=== PATIENT | female | born 1975 | race Caucasian/White ===

== ENCOUNTER → 2016-09-23 | Outpatient (CLI) | payer SELFPAY ==
[~2016-09-23] MED LIST: FERROUS SULFATE PO; SERTRALINE HCL50 M1 PO; ZANAFLEX2 M1 PO
== END | disposition home or self-care (01) ==
LOC: CBAR 15:46
DX: Z01.818 Encounter for other preprocedural examination (principal); E66.01 Morbid (severe) obesity due to excess calories
CPT/HCPCS: G0463

== ENCOUNTER → 2016-11-29 | Outpatient (CLI) | payer OTHER ==
--- NOTE | ~2016-11-29 | EKG ---
PATIENT: JEREMY GREEN UNIT #: [id number] Ventricular Rate: 65 BPM Atrial Rate: 65 BPM P-R Interval: 144 ms QRS Duration: 80 ms Q-T Interval: 400 ms QTC Calculation(Bezet): 416 ms P Climax: 33 degrees Calculated R Climax: 26 degrees Calculated T Climax: 20 degrees Diagnosis Line: Normal sinus rhythm with sinus arrhythmia Diagnosis Line: Normal ECG Diagnosis Line: No previous ECGs available Diagnosis Line: Confirmed by CLIVE PRICE MD ([id number]) on Diagnosis Line: 11/29/2016 4:38:43 PM INTERPRETING MD: DEE SKY
--- NOTE | ~2016-11-29 | CR63 ---
[facility] A Service of [facility] & [facility] RADIOLOGY TEXT RESULTS PATIENT: JEREMY GREEN LOCATION: [facility] : 73 UNIT #: [id number] AGE: [address]: Ambrose Ward MD SEX: F ORDER DR: [id number] [facility] [address] [place], [place] [address] [id number] O MR#: [id number] Acc #: [id number] NAME: JEREMY GREEN : 1975 SEX: F STUDY DATE/TIME: 11/29/2016 8:02 UNIT: [facility] ROOM: STUDY DESCRIPTION: CR Chest 2 View Attending Physician: Ambrose Ward M.D. Referring Physician: Ambrose Ward M.D. Ordering Physician: Ambrose Ward M.D. Primary Care Physician: Caryl Schultz A.P.R.N. MEDICAL IMAGING REPORT This report is preliminary unless electronic signature is present EXAM 2 view chest 11/29/2016 HISTORY 40-year-old female for preoperative respiratory clearance prior to gastric Lap-Band surgery and possible paraesophageal hernia repair. Morbid obesity. COMPARISON None. FINDINGS 2 views of the chest demonstrate clear lungs. No pleural effusion or pneumothorax. Heart size and mediastinum are normal. Pulmonary vasculature normal. IMPRESSION No acute cardiopulmonary findings. Dictated by... Luke Ayon M.D. THIS IS AN ELECTRONICALLY VERIFIED REPORT Luke Ayon M.D. at 11/29/2016 6:37 PM CRISTINA/elina TD: 11/29/2016 12:10 JOB #: [id number] MEDICAL IMAGING REPORT Page 1 of 1 COPY
--- NOTE | ~2016-11-29 | CR97 ---
[facility] A Service of [facility] & [facility] RADIOLOGY TEXT RESULTS PATIENT: JEREMY GREEN LOCATION: [facility] : 73 UNIT #: [id number] AGE: [address]: Ambrose Ward MD SEX: F ORDER DR: [id number] [place] [id number] [facility] [place], [place] [address] [id number] O MR#: [id number] Acc #: [id number] NAME: JEREMY GREEN : 1975 SEX: F STUDY DATE/TIME: 11/29/2016 8:53 UNIT: [facility] ROOM: STUDY DESCRIPTION: CR Esophagram Attending Physician: Ambrose Ward M.D. Referring Physician: Ambrose Ward M.D. Ordering Physician: Ambrose Ward M.D. Primary Care Physician: Caryl Schultz A.P.R.N. MEDICAL IMAGING REPORT This report is preliminary unless electronic signature is present EXAM Esophagram 11/29/2016 INDICATIONS 40-year-old female preop evaluation for lap-band placement. Possible paraesophageal hernia repair. Morbid obesity. History of melanoma surgery x2. Seasonal allergies. Symptoms began today. TECHNIQUE Spot fluoroscopic views of the esophagus were obtained in various projections after the patient ingested gas crystals and thick and thin liquid barium on 11/29/2016. No comparisons. FINDINGS Notes indicate that approximately 0.7 minutes of fluoroscopy time was used in the case. 42 spot fluoroscopic images from the procedure were saved to the DR PACS The esophagus demonstrates an unremarkable primary stripping wave. No focal persistent stricture, mucosal abnormality or esophageal mass identified. There is a small intermittently visualized sliding hiatal hernia. The esophagus is otherwise unremarkable. IMPRESSION 1. The examination is essentially negative with the exception of a tiny intermittently visualized sliding hiatal hernia. 2. Notes indicate 0.7 minutes of fluoroscopy time used in the case. 42 spot fluoroscopic views saved to the DR PACS. Dictated by... King Lobato M.D. THIS IS AN ELECTRONICALLY VERIFIED REPORT [facility] A Service of [facility] & [facility] RADIOLOGY TEXT RESULTS PATIENT: JEREMY GREEN LOCATION: [facility] #: [id number] : 73 UNIT #: [id number] AGE: [address]: Ambrose Ward MD SEX: F ORDER DR: King Lobato M.D. at 12/01/2016 5:39 PM LEEANNA/shireen TD: 11/29/2016 17:57 JOB #: [id number] MEDICAL IMAGING REPORT Page 1 of 1 COPY
[2016-11-29 09:46] LABS: HEMATOCRIT 39.6 % (35.0-45.0); MEAN CELL VOLUME 85.6 FL (83-96); MEAN CORPUSCULAR HEMOGLOBIN 28.1 PG (28-34); MEAN CORPUSCULAR HGB CONC 32.8 g/dL (30-36); MEAN PLATELET VOLUME 8.3 FL (6.5-11.5); RED BLOOD COUNT 4.63 X10e (3.90-5.30); RED CELL DISTRIBUTION WIDTH 14.1 % (11.0-15.5); WHITE BLOOD COUNT 12.1 X10e3 (4.0-10.5)
[2016-11-29 10:25] LABS: BILIRUBIN,TOTAL 0.4 mg/dL (0.2-2.0); BUN/CREATININE RATIO 21.42; CALCIUM SERUM 9.3 mg/dL (8.4-10.2); CREATININE SERUM 0.7 mg/dL (0.6-1.4); GLOM FILT RATE Estimated 107.6 mL/min (>60); POTASSIUM 4.5 mmol/L (3.5-5.1); PROTEIN TOTAL SERUM 7.2 g/dL (6.0-8.3)
== END | disposition home or self-care (01) ==
LOC: CRAD 07:32
PROVIDERS: Surgery
DX: Z01.818 Encounter for other preprocedural examination (principal); E66.01 Morbid (severe) obesity due to excess calories
CPT/HCPCS: 36415; 71020; 74220; 80053; 80061; 84443; 85027; 93005

== ENCOUNTER → 2016-12-14 | Day surgery (SDC) | payer OTHER ==
--- NOTE | ~2016-12-14 | OR ---
Unit #: [id number] #: [id number] Patient: JEREMY GREEN [id number] [address] [address] [id number] O MR#: [id number] NAME: JEREMY GREEN ROOM: Date of Procedure: 12/14/2016 Admission Date: 12/14/2016 Surgeon: Ambrose Ward M.D. : 1975 Attending Physician: Ambrose Ward M.D. Referring Physician: Ambrose Ward M.D. Primary Care Physician: Caryl Schultz A.P.R.N. OPERATIVE REPORT PREOPERATIVE DIAGNOSIS Chronic morbid obesity, body mass index of 36. POSTOPERATIVE DIAGNOSES 1. Chronic morbid obesity, body mass index of 36. 2. Paraesophageal hiatal hernia. PROCEDURES PERFORMED 1. Laparoscopic adjustable gastric band. 2. Laparoscopic paraesophageal hiatal hernia repair. ASSISTANT Shaw Bella M.D ANESTHESIA General endotracheal anesthesia. ESTIMATED BLOOD LOSS Minimal. IV FLUIDS 800 crystalloid. COMPLICATIONS None. INDICATIONS FOR PROCEDURE The patient is a lady, who presents with chronic morbid obesity. DESCRIPTION OF PROCEDURE The patient was taken to the operating room and placed in supine position. General anesthesia was induced. The abdomen was prepped and draped. A 3-cm incision was then made left of the midline. A 10-mm Visiport was then placed intraabdominal under direct vision. The abdomen was insufflated to 15 mmHg with CO2. The patient was then placed in a steep reversed Trendelenburg. General inspection of the abdomen revealed what appeared to be a paraesophageal hernia. This was identified with a defect at the diaphragm using anterior palpation with the instrument. We then made a small incision in the subxiphoid region. A Ashley liver retractor was then placed intraabdominal and used to retract the left lobe of the liver upward to further expose the paraesophageal hernia and GE junction. I then placed a 5-mm port in the right upper quadrant, a 10-mm Unit #: [id number] #: [id number] Patient: JEREMY GREEN port in the left upper quadrant, and another 5-mm port in the left lower quadrant. The stomach was retracted medial and downward. Upon retracting the stomach, we took down the paraesophageal ligament, exposing the right and left sabrina at the paraesophageal hernia. Any hernia sac was reduced. We then repaired the paraesophageal hernia using interrupted #0 Ethibond sutures in a [id number]-[id number] type fashion. This formed a snug repair to the anterior esophagus. We then retracted the stomach medially and further exposed the angle of His using Bovie electrocautery. The stomach was then retracted laterally. We then took down the hepatogastric ligament with Bovie electrocautery. This exposed the right sabrina. Using blunt dissection, I created a retrogastric tunnel from this point to the angle of His. The band was then placed intraabdominal through the 10-mm port site. This was then brought through the retrogastric tunnel in a pars flaccida technique. The band was then closed anteriorly to form a 20-mL to 25-mL anterior gastric pouch. The fundus was then secured to the anterior pouch to prevent movement around the stomach using two interrupted #0 Ethibond sutures. A third suture was then used as a gathering stitch from the lesser curve to the anterior stomach, gathering and imbricating the remaining fundus of the stomach. The tubing was then brought out through the midline 10-mm port site. All ports and the Ashley liver retractor were removed under direct vision with no evidence of abdominal hemorrhage. A polypropylene mesh was then secured to the posterior face of the laparoscopic band port. This was secured using #0 Ethibond suture. This was then cut to shape. The port was then connected to the tubing and placed into a subcutaneous pocket just anterior to the rectus sheath. Its position was then confirmed. All tubing was then placed intraabdominal. The wounds were then closed with interrupted 4-0 Vicryl. The patient tolerated the procedure well and was sent to the recovery room in good condition. Dictated by... Camron Ch/adrian TD: 12/14/2016 22:56 JOB #: [id number] OPERATIVE REPORT Page 1 of 1 X Ambrose Ward MD X PROCEDURE OPERATIVE NOTE
--- NOTE | ~2016-12-14 | CR7 ---
[facility] A Service of [facility] & [facility] RADIOLOGY TEXT RESULTS PATIENT: JEREMY GREEN LOCATION: [facility] : 73 UNIT #: [id number] AGE: [address]: Ambrose Ward MD SEX: F ORDER DR: [id number] [facility] [address] [place], [place] [address] [id number] O MR#: [id number] Acc #: [id number] NAME: JEREMY GREEN : 1975 SEX: F STUDY DATE/TIME: 12/14/2016 8:22 UNIT: [facility] ROOM: STUDY DESCRIPTION: CR Abdomen Single AP View Attending Physician: Ambrose Ward M.D. Referring Physician: Ambrose Ward M.D. Ordering Physician: Ambrose Ward M.D. Primary Care Physician: Caryl Schultz A.P.R.N. MEDICAL IMAGING REPORT This report is preliminary unless electronic signature is present EXAM Portable abdomen HISTORY Status post Lap-Band. FINDINGS An AP view is obtained. Lap-Band appears in appropriate position in the left upper quadrant. CONCLUSION Appropriate position of the Lap-Band left upper quadrant. Dictated by... Ambrose Mckay M.D. THIS IS AN ELECTRONICALLY VERIFIED REPORT Ambrose Mckay M.D. at 12/15/2016 7:25 AM DHRUV/elina TD: 12/14/2016 08:49 JOB #: [id number] MEDICAL IMAGING REPORT Page 1 of 1 COPY
== END | disposition home or self-care (01) ==
LOC: CSUR 05:30
DX: E66.01 Morbid (severe) obesity due to excess calories (principal); K44.9 Diaphragmatic hernia without obstruction or gangrene; F41.9 Anxiety disorder, unspecified; G47.30 Sleep apnea, unspecified; Z68.36 Body mass index [BMI] 36.0-36.9, adult; Z79.899 Other long term (current) drug therapy
CPT/HCPCS: 74000; 84703; C1781; J0330; J0690; J1100; J1650; J1885; J2250; J2405; J3010